=== PATIENT | female | born 1960 | race American Indian/Alaskan Native ===

== ENCOUNTER → 2021-12-25 | Outpatient (CLI) | payer OTHER ==
[~2021-12-25] MED LIST: ACET500 PO; DIPH50 PO; IBUP400 PO; LOSHYD PO; OMEPRAZOLE MAGN20 MG PO
[2021-12-25 15:39] LABS: Microalbumin, Urine Quant. <5.000 mg/L (0.000-20.000); Protein, Urine Quantitative <5.0 mg/dL (0.0-11.9)
== END | disposition home or self-care (01) ==
LOC: LAB SHORT 13:28
PROVIDERS: Internal Medicine Nephrology
DX: N18.30 Chronic kidney disease, stage 3 unspecified (principal); D63.1 Anemia in chronic kidney disease; N25.81 Secondary hyperparathyroidism of renal origin; E78.00 Pure hypercholesterolemia, unspecified; E55.9 Vitamin D deficiency, unspecified; R94.6 Abnormal results of thyroid function studies; R94.5 Abnormal results of liver function studies; R76.9 Abnormal immunological finding in serum, unspecified
CPT/HCPCS: 81050; 82043; 82570; 84156

== ENCOUNTER → 2022-04-01 | Outpatient (CLI) | payer OTHER ==
[2022-04-01 13:20] LABS: Microalbumin, Urine Quant. <5.000 mg/L (0.000-20.000); Protein, Urine Quantitative <5.0 mg/dL (0.0-11.9)
== END | disposition home or self-care (01) ==
LOC: LAB 11:03 → LAB SHORT 11:03 → LAB FUT 03-30 14:35
PROVIDERS: Internal Medicine Nephrology
DX: N18.30 Chronic kidney disease, stage 3 unspecified (principal); D63.1 Anemia in chronic kidney disease; N25.81 Secondary hyperparathyroidism of renal origin; E55.9 Vitamin D deficiency, unspecified; E78.00 Pure hypercholesterolemia, unspecified; G60.9 Hereditary and idiopathic neuropathy, unspecified; D51.8 Other vitamin B12 deficiency anemias; D50.9 Iron deficiency anemia, unspecified; R76.9 Abnormal immunological finding in serum, unspecified; R94.5 Abnormal results of liver function studies; R94.6 Abnormal results of thyroid function studies
CPT/HCPCS: 81050; 82043; 82570; 84156